=== PATIENT | male | born 1975 | race Caucasian/White ===

== ENCOUNTER → 2018-05-21 | Outpatient (CLI) | payer OTHER ==
[~2018-05-21] MED LIST: IBUP-1007 PO; LEXAPRO20 MG PO
--- NOTE | 2018-05-21 21:12 | PAIN ---
DATE OF SERVICE: 05/21/2018 INITIAL CONSULTATION FOR PAIN CLINIC CHIEF COMPLAINT: Low back and right lower extremity pain. HISTORY OF PRESENT ILLNESS: This is a 42-year-old male who presents with history of pain since about 6 months ago over the summer, gradually increasing, not a result of any specific injury or action he is aware of. Pain across the low back, bilateral hips, posterior gluteus, posterior lateral thigh, posterior calf and into the heel and ankle on the right side. The patient reports it has been getting much worse with standing, walking as bad as well, but it gets better with walking slightly with standing and in still position it gets much, much worse. The patient reports it is much worse on the right side, some pain in the left side only in the gluteus and into the posterior thigh with some numbness in the right lateral aspect of the lower leg as well as the foot. The patient reports it is sharp, intermittent in intensity with numbness and radiating pain, aching pain as well in the low back. The patient has tried some physical therapy, is doing exercise constantly and continues to do this. Also, has some chiropractic treatment in early part of May, which helped temporarily as well. The patient has not had any other therapies at this time. He did try a prednisone taper pack, which helped significantly by about 50% and that was in about a month ago. The patient is also taking ibuprofen and Lortab, which is only helps slightly. The patient did have MRI scan of the lumbar spine showing bilateral L5 spondylosis with grade 1 spondylolisthesis, [id number] bilateral neural foraminal stenosis, L5-S1 and degenerative disease at the L5-S1 level as well. The patient rates his disability from 0-10, 10 being the worst, is a 7 with recreational activity, 5 with home and family responsibility, 5 with sexual behavior, 6 with social activity, 2 with occupation and self-care activities and 0 with life support activities. The patient reports no loss of motor function of the lower extremities with significant fatigability of the right leg with activity. PAST MEDICAL HISTORY: Significant for arthritis and previous cigarette smoking. PAST SURGICAL HISTORY: Previous surgeries include a left knee scope and the ACL and MCL repair on the left leg but the patient has been in fairly good health. CURRENT MEDICATIONS: List is well documented on the patient's chart. ALLERGIES: The patient has no known drug allergies. REVIEW OF SYSTEMS: The patient's review of systems is positive for those items in history of present illness, is complete, full and well documented on the patient's chart. FAMILY HISTORY: Significant for type 2 diabetes only. SOCIAL HISTORY: The patient does smoke 4-5 cigarettes a day, has for 20 years. Drinks about 1-2 drinks. Denies twice a week, but rarely. Does not use any illegal, illicit or recreational drugs or other substances. The patient is and lives with his spouse, has 4 children, living with him in [place], [place]. He is active currently. PHYSICAL EXAMINATION: VITAL SIGNS: The patient's blood pressure 157/85, pulse 101, respirations 18 and temperature 98.2 degrees Fahrenheit. Height is 69 inches and weight is 243 pounds. GENERAL: The patient is awake, alert, oriented, appropriate and very pleasant demeanor. HEENT: Head shows normocephalic and atraumatic. Extraocular movements are intact and symmetrical. Oral cavity: Mucous membranes are moist and pink. Dentition is intact. NECK: Shows anterior throat supple without palpable lymphadenopathy noted. Swallow reflex is symmetrical. CHEST: Shows normal with inspection. Breath sounds clear to auscultation bilaterally. HEART: Shows S1 and S2 clear. No murmurs auscultated. ABDOMEN: Soft, nontender and nondistended. No palpable organomegaly is noted. No rebound or guarding demonstrated. BACK: Shows spine grossly in the midline. Normal-appearing thoracic kyphosis and lumbar lordotic curvature. Lumbar paraspinous muscle shows symmetrical on inspection. On palpation shows some [id number] tenderness only in the low lumbar distribution bilaterally without radiation. The patient shows no tenderness over the sacrum or sacroiliac regions bilaterally. EXTREMITIES: The patient's lower extremities show deep tendon reflexes at 2+ in the patellar and tendo-calcaneus tendons are 1+. Motor exam is strong with 5/5 dorsiflexion, extension, quadriceps and hamstring flexion and are symmetrical. Peripheral pulses are 1+ posterior tibia. No peripheral edema is noted. The patient's straight leg raising noted to be mildly positive on the right about 45 degrees, decreased with knee flexion, left side is negative. The patient's Gaenslen's and Damion's maneuvers are negative bilaterally as well. The patient is able to stand, stand on his toes and difficulty or loss of balance, walks with normal-appearing gait, does not appear to favor the right or left lower extremity significantly, not using any assistive devices to ambulate. SKIN: Shows warm and dry, good turgor. No edema. No sores, rashes or bruising. IMPRESSION: 1. This is a 42-year-old male with low back and radicular pain in the right lower extremity, mainly following an L5-S1 dermatomal distribution, worse on the right. 2. MRI scan of the lumbar spine as noted. 3. History of arthritis. PLAN: Options were discussed with the patient including conservative medical management, physical therapy, interventional techniques. He would like to pursue interventional techniques as he is already doing physical therapies and staying very active with his own exercise. We discussed a lumbar epidural steroid injection using description as well as anatomical models to describe the procedure. We will wait for the patient's preauthorization with his insurance provider, have him return to the clinic and plan on lumbar epidural steroid injection at that time. In the meantime, the patient will continue with his exercises, stretching and strengthening and his activity as tolerated. MISSY MAR MD DR: KASSANDRA/adalgisa JOB#: [id number] / [id number]
== END | disposition home or self-care (01) ==
LOC: PNCL 13:16
PROVIDERS: ATTEND Anesthesiology
DX: M79.604 Pain in right leg (principal); M54.5 Low back pain; Z87.891 Personal history of nicotine dependence; Z87.39 Personal history of other diseases of the musculoskeletal system and connective tissue
CPT/HCPCS: G0463

== ENCOUNTER → 2018-05-31 | Outpatient (CLI) | payer OTHER ==
[~2018-05-31] MED LIST changes: +IOHEXOL 180 MG/ML 10 ML VIAL. ONE; +methylPREDNISolone ACETATE 40 MG/ML VIAL. ONE; +methylPREDNISolone ACETATE 80 MG/ML VIAL. ONE
--- NOTE | 2018-05-31 12:26 | PAIN ---
DATE OF SERVICE: 05/31/2018 PROGRESS NOTE FOR PAIN CLINIC DIAGNOSES: Lumbar radiculopathy with lumbar degenerative disk disease. HISTORY OF PRESENT ILLNESS: This is a 42-year-old male who returns for followup status post initial evaluation and preauthorization for lumbar epidural steroid injection. The patient has still pain in the low back and right lower extremity to a significant extent in the posterior gluteus, posterior thigh and posterior calf. He reports it is sharp and tight and also radiating, on and off in intensity, worse with walking, standing, changing positions, better with sitting or lying down, but reports it can awaken him from sleep, but not usually. The patient reports no new motor or sensory deficits, no new bowel or bladder incontinence. The patient reports his pain is 7 on a scale of 10 over the last week at its worst, is a 5 on average and a 1 at its least and is a 5 today. The patient reports no new motor or sensory deficits and no other changes. PHYSICAL EXAMINATION: VITAL SIGNS: The patient's blood pressure 146/76, pulse 91, respirations are 18, temperature is 97.7 degrees Fahrenheit, height is 69 inches and weight is 239 pounds. GENERAL: The patient is awake, alert, oriented, appropriate and very pleasant demeanor. HEENT: Head shows normocephalic and atraumatic. Extraocular movements are intact and symmetrical. Oral cavity, mucous membranes are moist and pink. Dentition is intact. NECK: Shows anterior throat is supple without palpable lymphadenopathy noted. Swallow reflex is symmetrical. CHEST: Shows normal with inspection. Breath sounds are clear to auscultation bilaterally. HEART: Shows S1 and S2 clear. No murmurs are auscultated. ABDOMEN: Soft, nontender and nondistended. No palpable organomegaly is noted. No rebound or guarding demonstrated. BACK: Shows spine grossly in the midline. Normal appearing thoracic kyphosis and lumbar lordotic curvature. Lumbar paraspinous muscle shows symmetrical on inspection. On palpation shows some moderate tenderness diffusely bilaterally, but only diffusely without radiation. The patient has good rotational motion of the lumbar spine bilaterally as well as extension and flexion without difficulty. EXTREMITIES: Lower extremities show deep tendon reflexes 2+ in the patellar and 1+ tendo calcaneus tendons. Motor exam is strong with 5/5 dorsiflexion, extension, quadriceps and hamstring flexion and symmetrical. Peripheral pulses are 1+ posterior tibial. No peripheral edema is noted bilaterally. Options were discussed with the patient. The patient's old chart was reviewed as was his current medication regimen updated. Current review of systems updated today as well. We will proceed with a lumbar epidural steroid injection today with fluoroscopic guidance. Risks were again discussed including, but not limited to bleeding, infection, possibility of epidural hematoma and subsequent neurological compromise, dural puncture, headaches, spinal cord and/or nerve damage, side effects of steroid medication and poor results regarding pain control. The patient understands and wished to proceed. The patient will return to the clinic in approximately 2 weeks for followup, was counseled as to return appointment, activity level and side effects to be aware of. DIAGNOSIS: Lumbar radiculopathy with lumbar degenerative disk disease. PROCEDURE: Lumbar epidural steroid injection, translaminar approach at the L5-S1 level using C-arm fluoroscopic guidance under sterile prep and drape using local anesthetic. MEDICATION INJECTED: A total of 120 mg Depo-Medrol plus 10 mL of preservative-free normal saline and 2 mL of Isovue for contrast. CONDITION AT DISCHARGE: Stable. The patient tolerated the procedure well and had no complications. MISSY MAR MD DR: KASSANDRA/adalgisa JOB#: [id number] / [id number]
== END | disposition home or self-care (01) ==
LOC: PNCL 11:00
PROVIDERS: ATTEND Anesthesiology
DX: M51.16 Intervertebral disc disorders with radiculopathy, lumbar region (principal); M79.661 Pain in right lower leg; Z98.890 Other specified postprocedural states; Z87.891 Personal history of nicotine dependence
CPT/HCPCS: 62323; J1030; J1040; Q9965

== ENCOUNTER → 2018-06-19 | Outpatient (CLI) | payer OTHER ==
[~2018-06-19] MED LIST changes: -IOHEXOL 180 MG/ML 10 ML VIAL. ONE; -methylPREDNISolone ACETATE 40 MG/ML VIAL. ONE; -methylPREDNISolone ACETATE 80 MG/ML VIAL. ONE
--- NOTE | 2018-06-19 10:11 | PAIN ---
DATE OF SERVICE: 06/19/2018 DIAGNOSES: Lumbar radiculopathy with lumbar degenerative disk disease. HISTORY OF PRESENT ILLNESS: The patient is a 42-year-old male who returns for followup status post lumbar epidural steroid injection x 1. The patient reports about 80% improvement after the last injection; still pain in the low back, right lower extremity; now returning after about 3 weeks in the low back, right lower extremity, posterior gluteus, posterior thigh, posterior calf, again becoming more noticeable day by day, but still significantly improved by about 80%. The patient reports he has been increasing his activity, greater household activity, work activities, getting up, standing for longer periods of time, walking greater distances traveling over the holidays with greater ease and comfort. The patient reports his pain as 5 on a scale of 10 at its worst now, 3 on average, and a 1 at its least and is 1 today. The patient reports no new motor or sensory deficits, no new bowel or bladder incontinence or other complaints. The patient describes the pain as radiating, on and off in intensity, aching, sharp and dull across the low back. PHYSICAL EXAMINATION: VITAL SIGNS: The patient's blood pressure is 135/86, pulse 91, respirations 16, temperature is 98.5 degrees Fahrenheit, weight is 241 pounds. GENERAL: The patient is awake, alert and oriented, appropriate, very pleasant demeanor. HEENT: Shows normocephalic, atraumatic. Extraocular movements are intact and symmetrical. Oral cavity: Mucous membranes moist and pink. Dentition is intact. NECK: Shows anterior throat supple without palpable lymphadenopathy noted. Swallow reflex symmetrical. CHEST: Shows normal with inspection. Breath sounds clear to auscultation bilaterally. HEART: Shows S1, S2 clear. No murmurs auscultated. ABDOMEN: Soft, nontender, nondistended. No palpable organomegaly is noted. No rebound or guarding demonstrated. BACK: Shows spine grossly in the midline. Normal-appearing thoracic kyphosis and lumbar lordotic curvature. Lumbar paraspinous muscle shows symmetrical on inspection, with palpation shows some moderate tenderness but only diffusely bilaterally without radiation. EXTREMITIES: Lower extremities show deep tendon reflexes at 2+ in the patellar, 1+ in tendo-calcaneus tendons. Motor exam is strong with 5/5 dorsiflexion and extension. Peripheral pulses are 1+ posterior tibial. No peripheral edema is noted. ASSESSMENT AND PLAN: Options were discussed with the patient. The patient's old chart was reviewed as was his current medication regimen updated. Current review of systems updated today as well. We will preauthorize the patient for a second lumbar epidural steroid injection as he has still radicular pain in an L5-S1 dermatomal distribution on the right, but the patient doing very well with about 80% improvement after the first injection, but now returning. The patient will continue to do stretching and strength exercises. He is going to the gym after he leaves the office today, to do some exercises as well. We will have him return in approximately 1 week, plan on second lumbar epidural steroid injection at that time. MISSY MAR MD DR: KASSANDRA/adalgisa JOB#: [id number] / [id number]
== END | disposition home or self-care (01) ==
LOC: PNCL 08:51
PROVIDERS: ATTEND Anesthesiology
DX: M51.16 Intervertebral disc disorders with radiculopathy, lumbar region (principal)
CPT/HCPCS: G0463

== ENCOUNTER → 2018-07-04 | Outpatient (CLI) | payer OTHER ==
[~2018-07-04] MED LIST changes: +IOHEXOL 180 MG/ML 10 ML VIAL. ONE; +methylPREDNISolone ACETATE 40 MG/ML VIAL. ONE; +methylPREDNISolone ACETATE 80 MG/ML VIAL. ONE
--- NOTE | 2018-07-04 10:44 | PAIN ---
DATE OF SERVICE: 07/04/2018 DIAGNOSES: Lumbar radiculopathy with lumbar degenerative disk disease. HISTORY OF PRESENT ILLNESS: The patient is a 42-year-old male who returns for followup status post preauthorization and awaiting authorization for lumbar epidural steroid injection. The patient did well after the first injection. Reports it is still helping with about an 80% improvement in the low back, right lower extremity. The patient reports still some pain in that area, low back, radiating to the posterior gluteus, posterior thigh, posterior calf region and aching, tight, cramping sensation on and off in intensity, worse with walking, standing, better with sitting or lying down, does not awaken him from sleep at night. The patient reports it is a 5 on a scale of 10 at its worst, 4 on average, 2 at its least and is a 4 today. The patient reports no new motor or sensory deficits, no new bowel or bladder incontinence. PHYSICAL EXAMINATION: VITAL SIGNS: The patient's blood pressure 125/79, pulse 85, respirations 16, temperature 98.2 degrees Fahrenheit, weight is 244 pounds. GENERAL: The patient is awake, alert, oriented, appropriate, very pleasant demeanor. HEENT: Head is normocephalic, atraumatic. Extraocular movements intact and symmetrical. Oral cavity: Mucous membranes moist and pink. Dentition intact. NECK: Shows anterior throat supple without palpable lymphadenopathy noted. Swallow reflex symmetrical. CHEST: Shows normal on inspection. Breath sounds clear to auscultation bilaterally. HEART: Shows S1, S2 clear. No murmurs auscultated. ABDOMEN: Soft, nontender, nondistended. No palpable organomegaly is noted. No rebound or guarding demonstrated. BACK: Shows spine grossly in the midline. Normal appearing thoracic kyphosis and lumbar lordotic curvature. Lumbar paraspinous muscle shows symmetrical on inspection, on palpation shows some moderate tenderness but only diffusely without radiation. EXTREMITIES: Lower extremities show deep tendon reflexes at 2+ in the patellar, 1+ tendo calcaneus tendons. Motor exam is strong with 5/5 dorsiflexion and extension, quadriceps and hamstring flexion. Peripheral pulses are 1+ posterior tibia. No peripheral edema is noted bilaterally. Options were discussed with the patient. The patient's old chart was reviewed as his current medication regimen updated. Current review of systems updated today as well, and we will proceed with a second lumbar epidural steroid injection today with fluoroscopic guidance. Risks were again discussed including, but not limited to bleeding, infection, possibility of epidural hematoma, subsequent neurologic compromise, dural puncture, headaches, spinal cord and/or nerve damage, side effects of steroid medication and poor results regarding pain control. The patient understands and wished to proceed. The patient to return to clinic in approximately 2 weeks for followup, was counseled on return appointment, activity level and side effects to be aware of. DIAGNOSES: Lumbar radiculopathy with lumbar degenerative disk disease. PROCEDURE: Lumbar epidural steroid injection, translaminar approach L5-S1 level using C-arm fluoroscopic guidance under sterile prep and drape using local anesthetic. MEDICATION INJECTED: A total of 120 mg Depo-Medrol, plus 10 mL of preservative-free normal saline and 2 mL of Isovue for contrast. CONDITION AT DISCHARGE: Stable. The patient tolerated procedure well, had no complications. MISSY MAR MD DR: KASSANDRA/nts JOB#: [id number] / [id number]
== END | disposition home or self-care (01) ==
LOC: PNCL 09:07
PROVIDERS: ATTEND Anesthesiology
DX: M51.16 Intervertebral disc disorders with radiculopathy, lumbar region (principal)
CPT/HCPCS: 62323; J1030; J1040; Q9965

== ENCOUNTER → 2018-09-09 | Outpatient (CLI) | payer OTHER ==
[~2018-09-09] MED LIST changes: -IOHEXOL 180 MG/ML 10 ML VIAL. ONE; -methylPREDNISolone ACETATE 40 MG/ML VIAL. ONE; -methylPREDNISolone ACETATE 80 MG/ML VIAL. ONE
--- NOTE | 2018-09-10 06:32 | PAIN ---
DATE OF SERVICE: 09/09/2018 DIAGNOSES: Lumbar radiculopathy with lumbar degenerative disk disease. HISTORY OF PRESENT ILLNESS: The patient is a 42-year-old male who returns for followup status post lumbar epidural steroid injection x 2, last seen 07/04/2018. The patient did very well with about a 75% improvement to close to 80% improvement after the injection in the pain in his right lower extremity. The patient reports he started having some pain now returning over the past just a week or two in the low back, primarily on the right side, but occasionally in the left side as well, posterior gluteus, posterior thigh, lateral thigh, lateral anterior thigh, anterior medial thigh, posterior leg, posterior calf and into the ankles, again much worse on the right than the left, but present bilaterally and on the left side for the past 2 weeks. The patient reports the pain is aching, tight, radiating, shooting and sharp at times and dull across the low back. The patient reports it is a 6 on a scale of 10 at its worst, 3 on average, 2 at its least and is a 2 today. The patient reports no new motor or sensory deficits, no new bowel or bladder incontinence, worse with activity, standing, walking, changing positions, bending or stooping, do repetitive motions, better with sitting or lying down, but does awaken him from sleep occasionally, not every night, but about every 6 hours. The patient reports no new motor or sensory deficits, no new bowel or bladder incontinence or other complaints. PHYSICAL EXAMINATION: VITAL SIGNS: The patient's blood pressure 134/83, pulse 67, respirations are 18, temperature 98.2 degrees Fahrenheit, height is 5 feet 9 inches, weight is 233 pounds. GENERAL: The patient is awake, alert, oriented, appropriate, very pleasant demeanor. HEENT: Head shows normocephalic, atraumatic. Extraocular movements intact and symmetrical. Oral cavity: Mucous membranes moist and pink. Dentition is intact. NECK: Shows anterior throat supple without palpable lymphadenopathy noted. Swallow reflex is symmetrical. CHEST: Shows normal on inspection with breath sounds clear to auscultation bilaterally. HEART: Shows S1, S2 clear. No murmurs auscultated. ABDOMEN: Soft, nontender, nondistended. No palpable organomegaly is noted. No rebound or guarding demonstrated. BACK: Shows spine grossly in the midline. Normal appearing thoracic kyphosis, lumbar lordotic curvature. Lumbar paraspinous musculature shows symmetrical on inspection with palpation, some mild tenderness in the middle and lower distribution of paraspinous muscles diffusely but good rotational motion both laterally as well as extension and flexion without significant difficulty. No tenderness over the sacrum, sacroiliac regions or spinous processes. EXTREMITIES: Lower extremities show deep tendon reflexes 2+ in the patellar and 1+ tendo calcaneus tendons. Motor exam is strong with 5/5 dorsiflexion, extension, quadriceps and hamstring flexion is symmetrical. Peripheral pulses are 1+ posterior tibia. No peripheral edema is noted bilaterally. Options were discussed with the patient. The patient's old chart was reviewed as his current medication regimen and updated. Current review of systems is updated today as well. We will preauthorize the patient for a third in a series of lumbar epidural steroid injection as he has done very well after the last two with 75%-80% improvement. Now, pain returning in a radicular fashion in L5-S1 dermatomal distribution, again right and left upper, middle and the right side. We will try Medrol Dosepak. In the meantime, he is given instructions for side effects to be aware of with medication and he will follow up in approximately one week. We will plan on third lumbar epidural steroid injection at that time. MISSY MAR MD DR: KASSANDRA/adalgisa JOB#: [id number] / [id number]
== END | disposition home or self-care (01) ==
LOC: PNCL 13:09
PROVIDERS: ATTEND Anesthesiology
DX: M51.16 Intervertebral disc disorders with radiculopathy, lumbar region (principal)
CPT/HCPCS: G0463

== ENCOUNTER → 2018-09-17 | Outpatient (CLI) | payer OTHER ==
[~2018-09-17] MED LIST changes: +IOHEXOL 180 MG/ML 10 ML VIAL. ONE; +methylPREDNISolone ACETATE 40 MG/ML VIAL. ONE; +methylPREDNISolone ACETATE 80 MG/ML VIAL. ONE
--- NOTE | 2018-09-18 02:13 | PAIN ---
DATE OF SERVICE: 09/17/2018 PROGRESS NOTE FOR PAIN CLINIC DIAGNOSES: Lumbar radiculopathy with lumbar degenerative disk disease. HISTORY OF PRESENT ILLNESS: The patient is a 42-year-old male who returns for followup status post lumbar epidural steroid injection x 2, last seen for injection on 07/04/2018. The patient did very well with about 80% improvement. The patient reports pain is returning now in the low back, bilateral lower extremities, worse on the right than the left, but present bilaterally. The patient reports it is worse with walking, standing or changing positions. He describes the pain as tight, tingling, cramping, becoming more constant, more radiating pain in the lower extremities, posterior gluteus, posterior thighs and posterior calves, again worse on the right side. The patient reports it is 7 on a scale of 10 at its worst, 4 on average and a 2 at its least and it is a 4 today. The patient reports no new motor or sensory deficits. Prior to the pain returning, it was much more comfortable for him doing activities, walking greater distances, doing work activities, household activities, traveling with greater ease and comfort. Now the pain is returning as described. The patient reports no new motor or sensory deficits, no new bowel or bladder incontinence or other complaints. PHYSICAL EXAMINATION: VITAL SIGNS: The patient's blood pressure is 126/79, pulse 91, respirations 18 and temperature 98.4 degrees Fahrenheit. Weight is 239 pounds. GENERAL: The patient is awake, alert, oriented, appropriate, very pleasant demeanor. HEENT EXAMINATION: Shows normocephalic, atraumatic. Extraocular movements are intact and symmetrical. Oral cavity, mucous membranes are moist and pink. Dentition is intact. NECK: Shows anterior throat supple, without palpable lymphadenopathy noted. Swallow reflex is symmetrical. CHEST: Shows normal on inspection. Breath sounds are clear to auscultation bilaterally. HEART: Shows S1, S2 clear. No murmurs auscultated. ABDOMEN: Soft, nontender and nondistended. No palpable organomegaly is noted. No rebound or guarding demonstrated. BACK: The patient's back shows spine grossly in the midline. Normal-appearing thoracic kyphosis and some minor flattening of the lumbar lordotic curvature. Lumbar paraspinous shows symmetrical on inspection. On palpation, it shows some moderate tenderness, but only with deeper palpation in the low lumbar distribution only. The patient shows good rotational motion of the lumbar spine, both laterally as well as extension and flexion without difficulty. EXTREMITIES: The patient's lower extremities show deep tendon reflexes at 2+ in the patellar, 1+ tendo calcaneus tendons. Motor exam is strong with 5/5 dorsiflexion, extension, quadriceps and hamstring flexion symmetrical. Peripheral pulses are 1+ posterior tibia. No peripheral edema is noted bilaterally. Options were discussed with the patient. The patient's old chart was reviewed as was his current medication regimen updated. Current review of systems updated today as well. We will proceed with a third in the series of lumbar epidural steroid injection today with fluoroscopic guidance. Risks were again discussed including, but not limited to bleeding, infection, possibility of epidural hematoma, subsequent neurological compromise, dural puncture, headaches, spinal cord and/or nerve damage, side effects of steroid medication and poor results regarding pain control. The patient understands and wishes to proceed. The patient will return to the clinic in approximately 2 weeks for followup. He was counseled on his return appointment, activity level and side effects to be aware of. DIAGNOSES: Lumbar radiculopathy with lumbar degenerative disk disease. PROCEDURE: Lumbar epidural steroid injection in translaminar approach at L5-S1 level using C-arm fluoroscopic guidance under sterile prep and drape using local anesthetic. MEDICATION INJECTED: A total of 120 mg Depo-Medrol plus 10 mL of preservative-free normal saline and 2 mL of Isovue for contrast. CONDITION AT DISCHARGE: Stable. The patient tolerated the procedure well, had no complications. MISSY MAR MD DR: KASSANDRA/adalgisa JOB#: [id number] / [id number]
== END | disposition home or self-care (01) ==
LOC: PNCL 13:01
PROVIDERS: ATTEND Anesthesiology
DX: M51.16 Intervertebral disc disorders with radiculopathy, lumbar region (principal)
CPT/HCPCS: 62323; J1030; J1040; Q9965